=== PATIENT | male | born 1960 | race Two or more races ===

== ENCOUNTER 2016-07-19 23:52 | Inpatient (IN) | payer MEDICAID ==
[~2016-07-19] VITALS: Ht 177.8 cm; Wt 75.3 kg
--- NOTE | 2016-07-20 | NUR ---
RN NOTE RECEIVED REPORT FROM [facility] MAGGIE CASTAÑEDA FOR CONTINUITY OF CARE. WILL AWAIT ARRIVAL OF PT VIA EMS.
[2016-07-20 01:00] VITALS: BP 132/77
--- NOTE | 2016-07-20 01:00 | NUR ---
RN INITIAL REPORT RECEIVED PT IN NO ACUTE DISTRESS IN BED. PT BROUGHT INTO UNIT VIA EMS. PT IS A/O X 3 AND ABLE TO MAKE NEEDS KNOWN. PT IS ON RA AND TOLERATING WELL WITH O2 SAT @ 97%. PT NOT C/O ANY SOB, DIFFICULTY BREATHING AT THIS TIME. PT REPORTS PAIN @ 7/10 ON RIGHT SIDE OF BODY. WHEN ASKED TO SPECIFY PT STATED "ITS ON MY RIGHT SIDE". AWAITING ORDERS FROM ADMITTING MD. WILL INITIATE PAIN MANAGEMENT PROTOCOL. PT HAS IV IN LHAND THAT IS CLEAN DRY AND INTACT, BUT WHEN TRY TO FLUSH PT REPORTED PAIN AT SITE. IV WILL BE REMOVED. PT HAS IV IN R WRIST THAT IS CLEAN DRY INTACT AND PATENT. BED IN LOW LOCK POSITION WITH RIALS UP X 2. CALL LIGHT WITHIN REACH AND ALL SAFETY MEASURES ENSURED AND CARRIED OUT. WILL CONTINUE TO MONITOR PT.
[2016-07-20] MEDS ORDERED: IV NS 0.9% 1,000 ML IV PRN (01:18)
[2016-07-20] MEDS ORDERED: Z GUARD REMEDY 2 OZ OINT TP PRN (01:30)
[2016-07-20] MEDS ORDERED: ZOLPIDEM TARTRATE 5 MG TABLET PO PRN ×2 (01:30→12:30)
[2016-07-20] MEDS ORDERED: ACETAMINOPHEN 325 MG TABLET PO PRN (01:30)
[2016-07-20] MEDS ORDERED: MAG HYDROX/AL HYDROX/SIMETH 30 ML UDC PO PRN (01:30)
[2016-07-20] MEDS ORDERED: ONDANSETRON HCL/PF 4 MG/2 ML VIAL IVP PRN (01:30)
[2016-07-20] MEDS ORDERED: MEROPENEM 1 G in IV NS 0.9% 100 ML IV SCH ×3 (01:30→13:00)
[2016-07-20] MEDS ORDERED: IV NS 0.9% 1,000 ML ONE (01:35)
[2016-07-20] MEDS ORDERED: IV SET PRIMARY PUMP SET 1 EA INFUS.SET MC ONE (01:35)
[2016-07-20] MEDS ORDERED: SECONDARY IV SET 1 EA INFUS.SET MC ONE ×3 (01:35→11:58)
[2016-07-20] MEDS ORDERED: MORPHINE SULFATE INJ 2 MG/ML DISP.SYRIN ONE (02:08)
[2016-07-20] MEDS ORDERED: MEROPENEM 1 G VIAL IV ONE (02:17)
[2016-07-20] MEDS: MORPHINE SULFATE INJ 2 MG/ML DISP.SYRIN IV PRN ×2 (02:18→10:04)
[2016-07-20] MEDS ORDERED: IV NS 0.9% 100 ML IV ONE (02:18)
[2016-07-20 04:00] VITALS: BP 122/77
--- NOTE | 2016-07-20 05:31 | NUR ---
RN NOTE UNABLE TO GIVE 0500 MERREM DUE TO MEDICATION Q8H AND LAST DOSE WAS GIVEN @ 0200. WILL CONTACT PHARMACY TO ADJUST TIMES FROM LAST DOSE.
--- NOTE | 2016-07-20 06:37 | NUR ---
RN CLOSING NOTE PT DID NOT HAVE ANY SIGNIFICANT CHANGE IN CONDITION DURING SHIFT. PT REMAINS IN NO ACUTE DISTRESS IN BED. WILL ENDORSE TO AM RN FOR CONTINUITY OF CARE.
[2016-07-20 07:02] LABS: BASOPHILS % (AUTO) 0.2 % (0.0-2.0); EOSINOPHILS % (AUTO) 0.1 % (0.0-6.0); HEMATOCRIT 39 % (39-51); HEMOGLOBIN 13.3 g/dL (13.5-17.5); LYMPHOCYTES # (AUTO) 0.3 /CMM (0.8-4.8); LYMPHOCYTES % (AUTO) 4.1 % (20.0-44.0); MEAN CORPUSCULAR HEMOGLOBIN 31 PG (26.0-33.0); MEAN CORPUSCULAR HGB CONC 35 g/dl (31.0-36.0); MEAN CORPUSCULAR VOLUME 88 fL (80-96); MONOCYTES # (AUTO) 0.4 /CMM (0.1-1.30); NEUTROPHILS % (AUTO) 90.6 % (43.0-81.0); PLATELET COUNT (AUTO) 171 /CMM (150-450); RDW COEFFICIENT OF VARIATION 12.8 (11.5-15.0); RED BLOOD CELL COUNT(AUTO) 4.37 MIL/uL (4.5-6.0); WHITE BLOOD COUNT (AUTO) 7.7 K/uL (4.3-11.0)
[2016-07-20 07:10] LABS: CALCIUM, SERUM 8.5 mg/dL (8.5-10.1); CREATININE 0.6 mg/dL (0.6-1.3); MAGNESIUM 1.4 mg/dL (1.8-2.4); PHOSPHORUS 3.3 mg/dL (2.5-4.9); POTASSIUM 3.4 mmol/L (3.5-5.1)
[2016-07-20 08:00] VITALS: BP 137/77
--- NOTE | 2016-07-20 08:00 | NUR ---
FORGE PRESS OPERATOR NOTE PATIENT RESTING COMFORTABLY UN BED , ALERT , ORIENTED X4 ,ON TELE SR HR 84 PATIENT USING URINAL EFFECTIVELY ,KEEP CLEAN DRY CALL LIGHT WITHIN REACH , BED IN LOWEST AND LOCKED POSITION, ON REGULAR DIET RT HAND HL INTACT, ON IVF ORDERED , PLAN OF CARE DISCUSSER WITH PATIENT , MED RECON NURSE AT BEDSIDE WILL F\U WITH MED RECOMPILATION ON RA NO SOB NOTED , WILL CONT TO MONITOR CLOSELY, NO C]O PAIN AT THIS TIME
[2016-07-20] MEDS ORDERED: FLUT16SP NS (08:31)
[2016-07-20] MEDS ORDERED: CYCL5TAB PO (08:31)
[2016-07-20] MEDS ORDERED: MORP45CP4 PO (08:31)
[2016-07-20] MEDS ORDERED: AMLO5TAB2 PO (08:31)
[2016-07-20] MEDS ORDERED: TAMS-12 PO (08:31)
[2016-07-20] MEDS ORDERED: HYDR4TAB57 PO (08:31)
[2016-07-20] MEDS ORDERED: ZOLP5TAB7 PO (08:31)
[2016-07-20] MEDS ORDERED: FEE PK DOSING 1 MIN EA MC ONE (08:42)
[2016-07-20] MEDS ORDERED: VANCOMYCIN 1 GM in IV D5W 250 ML IV SCH (09:00)
--- NOTE | 2016-07-20 09:30 | NUR ---
telegraphic typewriter repairer note patent become agitated asking for smoking and wants to go outside to smoke , emplaned that we not providing a cigarettes , explained that patient on ivf and tele monitoring and and need to be infuse, still noncompliant, still wants to go outside , called tim telephonic nurse case manager and Andie director of social services
--- NOTE | 2016-07-20 10:00 | NUR ---
X RAY DEVELOPING MACHINE OPERATOR NOTE BEN KEY MAKER AT BEDSIDE SPOKE WITH PATIENT EXPLAINED THAT HOSPITAL NOT PROVIDING A CIGARETTE , NEED TO CONT ADMINISTER HIS MEDICATIONS
--- NOTE | 2016-07-20 10:49 | NUR ---
WOUND CARE CONSULT: PATIENT SEEN AND SKIN ASSESSMENT DONE. PATIENT ALERT, INDEPENDENT WITH BED MOBILITY, INCONTINENT, SELENA 14. PATIENT ASSESSED WITH SKIN INTACT AT THIS TIME. RECOMMEND KEEP SKIN CLEAN AND DRY, MOISTURE PROTECTION WITH Z GUARD ORDERED. DISCUSSED RECOMMENDATIONS WITH NURSING STAFF. MD IN AGREEMENT WITH PLAN OF CARE.
[2016-07-20] MEDS ORDERED: NICOTINE PATCH (21MG) 21 MG PATCH.TD24 TD SCH (11:00)
--- NOTE | 2016-07-20 11:00 | NUR ---
ENGRAVER PANTOGRAPH NOTE CALLED TO DR RANDHAWA ASKED IF OK TO GET SMOKING CONSENT , PER DR BOSWELL OK TO GET SMOKING CONSENT ,
--- NOTE | 2016-07-20 11:45 | NUR ---
EBONY received a call from MAGGIE Auguste informing SW that pt. is being disruptive and insisting on smoking and requesting for a cigarette. EBONY and test case developer Tom met with pt. bedside. Pt. is A&O x4. Pt. is non-ambulatory and has a wheelchair. Pt. states he resides at [facility] located at [address] [place] [address] . Pt. is agitated and refused a nicotine patch that was provided for him. Pt. wants to go out and smoke and continues insisting on getting a cigarette. EBONY and Tom continued to provide active listening to pt. and informed him that the hospital cannot provide him with cigarettes. Pt. informed SW that if he cannot smoke he wants to leave. SW reiterated to pt. the importance of taking care of his medical condition and informed pt. the hospital would not be able to provide pt. with any transportation if he decided to go against medical advice. Pt. understood and seemed a bit less anxious. MAGGIE Auguste was consulted by EBONY and Tom regarding aforementioned conversation.
[2016-07-20 12:00] VITALS: BP 112/74
[2016-07-20] MEDS: Magnesium 1GM/D5W 100ML PREMIX 100 ML IV SCH ×4 (12:00→14:00)
[2016-07-20] MEDS ORDERED: POTASSIUM CHLORIDE 20 MEQ TAB.PRT.SR PO SCH (12:00)
[2016-07-20] MEDS ORDERED: FLUTICASONE PROPIONATE 16 GM BOTTLE NS PRN (12:30)
--- NOTE | 2016-07-20 13:08 | NUR ---
PRODUCT SAFETY ASSOCIATE NOTE PATIENT CONT TO REFUSE MAG AND MERREM IV ,WILL INFORM DR WAITE
--- NOTE | 2016-07-20 13:08 | NUR ---
KITCHEN UTILITY ASSOCIATE NOTE PATINT REFUSING MAG TO BE INFUSE AND MERREM ATB IV, CALLED TO DR RITTER STATED ITS OK ALSO EMPLANED OF IMPORTANCE OF MAG AND MERREM, STILL REFUSED WILL F\U
--- NOTE | 2016-07-20 14:00 | NUR ---
SOLUTION SALES SENIOR EXECUTIVE NOTE PATIENT UP ON CHAIR ,REFUSING TO INFUSE IVF, DR CARO AWARE
--- NOTE | 2016-07-20 15:00 | NUR ---
social media content specialist notes Pt wants to go, AMA called Dr. Long. Aware pt wants to go to [facility] [place]. Spoke with foster care case manager Ac from [facility] about pt being eager to go back to facility.
--- NOTE | 2016-07-20 15:15 | NUR ---
PUTTY AND CAULKING SUPERVISOR NOTES Pt signed form AMA. Going to facility by taxi. Voucher given. Hep lock removed. Telemetry removed. Went to facility in stable condition. Taken to lobby with wheelchair accompanied by staff.
[2016-07-20] MEDS ORDERED: HYDROMORPHONE HCL 2 MG TABLET PO PRN (16:00)
[2016-07-20] MEDS ORDERED: CYCLOBENZAPRINE 10 MG TABLET PO SCH (17:00)
[2016-07-20] MEDS ORDERED: MORPHINE SULFATE SR 15 MG TABLET.SA PO SCH (21:00)
[2016-07-21] MEDS ORDERED: TAMSULOSIN 0.4 MG CAP.SR.24H PO SCH (09:00)
[2016-07-21] MEDS ORDERED: AMLODIPINE BESYLATE 5 MG TABLET PO SCH (09:00)
== END 2016-07-20 15:10 | disposition left against medical advice (07) | DRG 463 ==
LOC: TELE1 07-20 00:46
PROVIDERS: ADMIT Nurse Practitioner Acute Care; ATTEND Family Medicine
DX: N39.0 Urinary tract infection, site not specified (principal); N31.9 Neuromuscular dysfunction of bladder, unspecified; F17.210 Nicotine dependence, cigarettes, uncomplicated; N40.0 Benign prostatic hyperplasia without lower urinary tract symptoms; Z92.3 Personal history of irradiation; Z92.21 Personal history of antineoplastic chemotherapy; Z85.01 Personal history of malignant neoplasm of esophagus
CPT/HCPCS: 36415; 80048-TC; 83735-TC; 84100-TC; 85025-TC; 87081-TC; A6403; J2185; J2270; J3370; J3475; J7030; J7060; Z7610